=== PATIENT | male | born 1990 | race African-American/Black ===

== ENCOUNTER 2019-02-06 10:05 | Emergency (ER) | payer SELFPAY ==
[2019-02-06 10:07] VITALS: Wt 104.5 kg
[2019-02-06 12:20] VITALS: BP 136/75
== END 2019-02-06 12:20 | disposition home or self-care (01) ==
LOC: D.ER 10:05
DX: S46.912A Strain of unspecified muscle, fascia and tendon at shoulder and upper arm level, left arm, initial encounter (principal); M25.512 Pain in left shoulder; W19.XXXA Unspecified fall, initial encounter; Y92.009 Unspecified place in unspecified non-institutional (private) residence as the place of occurrence of the external cause